=== PATIENT | male | born 1950 | race Caucasian/White ===

== ENCOUNTER → 2018-03-17 | Outpatient (CLI) | payer OTHER ==
[~2018-03-17] MED LIST: AMLO-150 PO; ENAL20TA PO; Potassium PO; SIMV10TA PO
== END | disposition home or self-care (01) ==
LOC: CVU 14:33
PROVIDERS: ATTEND Internal Medicine Cardiovascular Disease
DX: I35.8 Other nonrheumatic aortic valve disorders (principal); I10 Essential (primary) hypertension
CPT/HCPCS: 93306

== ENCOUNTER 2019-03-25 19:12 | Emergency (ER) | payer MEDICARE, OTHER ==
[~2019-03-25] VITALS: Ht 185.4 cm; Wt 96.0 kg
--- NOTE | 2019-03-25 21:04 | NUR ---
ASSUMED CARE OF PT AT THIS TIME.
--- NOTE | 2019-03-25 21:16 | NUR ---
THIS IS A 68 YO MALE WHO PRESENTS TO THE ER C/O "MY HEART FEELS LIKE IT'S GURGLING, LIKE WATER THROUGH PIPES". PT DENIES THIS FEELING AT THIS TIME. PT ALSO DENIES PAIN WITH THIS SENSATION. PT REPORTS IT HAS BEEN INTERMITTENT SINCE 1600 TODAY. PT AO X 4. SKIN PWD. RESP EVEN AND UNALBORED. PT ON CONT BP, CARDIAC AND O2 MONITORS. 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 FRIENDS AT BEDSIDE. WILL CONT TO MONITOR PT.
--- NOTE | 2019-03-25 21:28 | NUR ---
ANGEL BERG AT BEDSIDE FOR EVAL.
--- NOTE | 2019-03-25 21:38 | NUR ---
PT TO IMAGING VIA [employer] AT THIS TIME.
[2019-03-25 22:02] LABS: BASOPHILS # (AUTO) 0.03 x10^3/uL (0-0.1); BASOPHILS % (AUTO) 0 % (0-1); EOSINOPHILS # (AUTO) 0.08 x10^3/uL (0-0.4); EOSINOPHILS % (AUTO) 1 % (1-7); LYMPHOCYTES % (AUTO) 20 % (22-44); MD NO; MEAN CORPUSCULAR HEMOGLOBIN 32.2 pg (27.5-34.5); MEAN CORPUSCULAR HGB CONC 33.7 g/dL (33.2-36.2); MEAN CORPUSCULAR VOLUME 95.3 fL (81-97); MEAN PLATELET VOLUME 7.7 fL (7.4-10.4); MONOCYTES # (AUTO) 0.52 x10^3/uL (0.2-0.8); MONOCYTES % (AUTO) 7 % (2-9); NEUTROPHILS # (AUTO) 5.57 x10^3/uL (1.8-6.8); NEUTROPHILS % (AUTO) 72 % (42-75); PLATELET COUNT 276 x10^3/uL (130-400); RED BLOOD COUNT 4.06 x10^6/uL (4.38-5.82)
--- NOTE | 2019-03-25 22:08 | NUR ---
REPORT TO AMALIA BAÑUELOS WHO ASSUMED CARE OF PT.
[2019-03-25 22:12] LABS: ALBUMIN 3.8 g/dL (3.4-5.0); CALCIUM 9.1 mg/dL (8.5-10.1); CREATININE 2.07 mg/dL (0.7-1.3)
[2019-03-25 22:15] LABS: TROPONIN I < 0.015 ng/mL (0.000-0.045)
[2019-03-25 22:24] LABS: ANION GAP 5 mmol/L (5-15); CHLORIDE 110 mmol/L (98-107)
[2019-03-25 22:43] VITALS: BP 137/76
--- NOTE | 2019-03-25 22:45 | NUR ---
PT CHART UP FOR RECHECK AT THIS TIME. FRIENDS AT BEDSIDE.
== END 2019-03-25 23:17 | disposition home or self-care (01) ==
LOC: ED 22:04
DX: R07.89 Other chest pain (principal); I10 Essential (primary) hypertension; E78.5 Hyperlipidemia, unspecified
CPT/HCPCS: 36415; 71046; 80048; 82040; 84484; 85025; 93005; 99285

== ENCOUNTER → 2019-06-05 | Outpatient (CLI) | payer MEDICARE, OTHER | END | disposition home or self-care (01) | LOC: CFH 15:49 | PROVIDERS: ATTEND Internal Medicine Cardiovascular Disease | DX: I08.2 Rheumatic disorders of both aortic and tricuspid valves (principal); I10 Essential (primary) hypertension | CPT/HCPCS: 93306 ==

== ENCOUNTER → 2020-04-23 | Outpatient (CLI) | payer OTHER ==
[~2020-04-23] MED LIST changes: -ENAL20TA PO; +ENAL20TA9 PO
== END | disposition home or self-care (01) ==
LOC: CFH 09:54
PROVIDERS: ATTEND Urology
DX: N20.0 Calculus of kidney (principal); K57.30 Diverticulosis of large intestine without perforation or abscess without bleeding; J98.4 Other disorders of lung; M51.36 Other intervertebral disc degeneration, lumbar region; M47.816 Spondylosis without myelopathy or radiculopathy, lumbar region
CPT/HCPCS: 74176